=== PATIENT | female | born 1980 | race American Indian/Alaskan Native ===

== ENCOUNTER 2019-03-15 14:32 | Outpatient (CLI) | payer BC ==
--- NOTE | 2019-03-16 08:50 | Mammography Report ---
BILATERAL DIGITAL SCREENING MAMMOGRAM WITH CAD INDICATION: Routine screening mammography. TECHNIQUE: Digital bilateral 2D mammography was obtained in the craniocaudal and mediolateral obliq ue projections. This examination was interpreted with the benefit of Computer-Aided Detection analysi s. COMPARISON: None. FINDINGS: Breast Density: There are scattered areas of fibroglandular density. There is no evidence of dominant mass, suspicious calcifications or architectural distortion in eith er breast. IMPRESSION:No mammographic evidence of malignancy. BI-RADS Category 1: Negative. No mammographic evidence of malignancy. Recommend routine screening m ammography in one year. A "normal" or negative report should not discourage follow up or biopsy of a clinically significant f inding. A written summary of these findings will be mailed to the patient. The patient will be entered into a mammography reporting system which will generate a reminder letter for the patient's next appointmen t at the appropriate interval. The [employer] recommends yearly mammograms starting at age 40 and continuing as l melissa as a woman is in good health. Breast MRI is recommended for women with an approximate 20-25% or greater lifetime risk of breast cancer, including women with a strong family history of breast or ova segun cancer or who have been treated for Hodgkin's disease. Signer Name: Jose Pardo MD Signed: 03/16/2019 8:45 AM Workstation Name: [id number]
== END 2019-03-15 14:33 | disposition home or self-care (01) ==
LOC: SPVWC 14:32
PROVIDERS: ATTEND Obstetrics & Gynecology
DX: Z12.31 Encounter for screening mammogram for malignant neoplasm of breast (principal)
CPT/HCPCS: 77067

== ENCOUNTER 2019-08-20 05:57 | Day surgery (SDC) | payer BC ==
--- NOTE | 2019-08-16 10:20 | Anesthesia Consultation ---
Anesthesia Consult and Med Hx Date of service: 08/20/19 - Airway Anesthetic Teeth Evaluation: Good ROM Head & Neck: Adequate Mental/Hyoid Distance: Adequate Mallampati Class: Class III Intubation Access Assessment: Possibly Difficult - Pulmonary Exam CTA: Yes - Cardiac Exam Cardiac Exam: RRR - Pre-Operative Health Status ASA Pre-Surgery Classification: ASA3 Proposed Anesthetic Plan: General - Pulmonary Hx Smoking: No Hx Respiratory Symptoms: No Hx Sleep Apnea: Yes (stopped using CPAP many years ago) - Cardiovascular System Hx Hypertension: No Hx Heart Attack/AMI: No - Central Nervous System CVA: No Hx Psychiatric Problems: No - Gastrointestinal Hx Gastroesophageal Reflux Disease: Yes - Endocrine Hx Renal Disease: No Hx Liver Disease: No Hx Insulin Dependent Diabetes: No Hx Non-Insulin Dependent Diabetes: No Hx Thyroid Disease: No - Other Systems Hx Obesity: Yes (BMI 42) - Additional Comments Anesthesia Medical History Comments: No hx anesthetic complications. Reports episode of mild chest pain 2 months ago which occurred at rest, no associated symptoms, resolved on its own. Has stairs in house and is able to climb those without chest pain or dyspnea. Preop EKG NSR.
[2019-08-16 10:28] LABS: Hematocrit 37.7 % (30.3-42.9); Hemoglobin 12.6 gm/dl (10.1-14.3); Mean Corpuscular HGB Conc 33 % (30-34); Mean Corpuscular Volume 78 fl (79-97); Platelet Count 303 K/mm3 (140-440); Red Blood Count 4.83 M/mm3 (3.65-5.03); Red Cell Distribution Width 15.1 % (13.2-15.2)
[2019-08-20] MEDS ORDERED: GABAPENTIN 300 MG CAP PO NR (06:00)
[2019-08-20] MEDS ORDERED: CELECOXIB 200 MG CAP PO NR (06:00)
[2019-08-20] MEDS ORDERED: MIDAZOLAM 2 MG/2 ML INJ IV NR (06:00)
[2019-08-20] MEDS ORDERED: LACTATED RINGERS 1,000 ML IV SCH (06:00)
[2019-08-20] MEDS ORDERED: BACTERIOSTATIC SODIUM CHLORIDE 0.9% 30 ML VIAL INFILTRATI ONE (06:32)
--- NOTE | 2019-08-20 07:19 | Anesthesia Day of Surgery ---
Anesthesia Day of Surgery - Day of Surgery Patient Examined: Yes Patient H&P Reviewed: Yes Patient is NPO: Yes
[2019-08-20] MEDS ORDERED: fentaNYL 100 MCG/2 ML INJ ONE (07:36)
[2019-08-20] MEDS ORDERED: PROPOFOL 200 MG/20 ML VIAL IV ONE (07:36)
[2019-08-20] MEDS ORDERED: LIDOCAINE MPF (2%) 20 MG/1 ML VIAL 5 ML ONE (07:37)
--- NOTE | 2019-08-20 08:10 | Short Stay Summary ---
Short Stay Documentation Date of service: 08/20/19 Narrative H&P: Menorrhagia and endometrial mass - History Past Medical History: No medical history Past Surgical History: Other (btl) Social history: no significant social history - Allergies and Medications Current Medications: Allergies Penicillins Allergy (Verified 08/12/19 17:24) Facial peeling Home Medications Medication Instructions Recorded Confirmed Last Taken Type No Known Home Medications [No 08/12/19 08/12/19 Unknown History Reported Home Medications] Active Medications Celecoxib (Celebrex) 200 mg PO PREOP NR Stop: 08/20/19 23:59 Last Admin: 08/20/19 06:40 Dose: 200 mg Documented by: Gabapentin (Gabapentin) 300 mg PO PREOP NR Stop: 08/20/19 23:59 Last Admin: 08/20/19 06:40 Dose: 300 mg Documented by: Lactated Ringer's (Lactated Ringers) 1,000 mls @ 100 mls/hr IV DIRECT HORACE Last Admin: 08/20/19 06:50 Dose: 100 mls/hr Documented by: - Physical exam General appearance: no acute distress, well-nourished Lungs: Clear to auscultation, Normal air movement Breasts: deferred Heart: Regular rate Gastrointestinal: normal Female Genitourinary: deferred - Brief post op/procedure progress note Date of procedure: 08/20/19 Pre-op diagnosis: Menorrhagia, endometrial mass Post-op diagnosis: same Procedure: Operative hysteroscopy, Excision of endometrial mass, D&C; endometrial ablation Anesthesia: GETA Surgeon: HECTOR LEWIS Estimated blood loss: minimal Pathology: list (endometrial tissue, endometrial mass) Specimen disposition: to lab Condition: stable - Hospital course Hospital course: Normal - Disposition Condition at discharge: Good Disposition: DC-01 TO HOME OR SELFCARE - Discharge Diagnoses (1) Endometrial mass Status: Resolved (2) Menorrhagia Status: Chronic Qualifiers: Menorrahagia type: with regular cycle Qualified Code(s): N92.0 - Excessive and frequent menstruation with regular cycle Short Stay Discharge Plan Activity: other (no sex) Weight Bearing Status: Full Weight Bearing Diet: regular Special Instructions: no heavy lifting (greater than 25lbs) Follow up with: PRIMARY CARE, [Primary Care Provider] - 7 Days HECTOR LEWIS MD [Staff Physician] - (As scheduled)
[2019-08-20] MEDS ORDERED: KETOROLAC 30 MG/1 ML INJ ONE (08:32)
[2019-08-20] MEDS ORDERED: ONDANSETRON 4 MG/2 ML INJ ONE (08:32)
[2019-08-20] MEDS ORDERED: dexAMETHasone 20 MG/5 ML VIAL ONE (08:32)
[2019-08-20] MEDS ORDERED: SODIUM CHLORIDE 0.9% IRRIG SOLN 3000 ML IR ONE (08:48)
[2019-08-20] MEDS ORDERED: PHENYLEPHRINE/NS 1,000 MCG/10 ML SYRINGE (OR USE) IV ONE (08:50)
[2019-08-20] MEDS ORDERED: LACTATED RINGERS 1,000 ML ONE (09:12)
[2019-08-20] MEDS ORDERED: oxyCODONE /ACETAMINOPHEN 5-325MG TAB PO PRN (10:00)
[2019-08-20 10:24] VITALS: BP 144/88
--- NOTE | 2019-08-20 16:59 | Post Anesthesia Evaluation ---
- Post Anesthesia Evaluation Patient Participated: Yes Airway Patent: Yes Stable Respiratory Function: Yes Nausea/Vomiting: No Temp > 96.8F: Yes Pain Manageable: Yes Adequeate Hydration: Yes Anesthesia Complications: No
--- NOTE | 2019-08-24 12:14 | Operative Report ---
Operative Report Operative Report: Date: 08/20/2019 Preoperative diagnosis: 1. Menorrhagia 2. Endometrial mass Postoperative diagnosis: 1. Menorrhagia 2. Endometrial mass Procedure: 1. Cervical dilation 2. Operative hysteroscopy 3. Uterine curettage 4. Resection of endometrial mass using MyoSure device 5. Individual ablation Surgeon: Miranda Newell MD Construction Operations Manager: [] Anesthesiologist: [] Anesthesia: Gen. endotracheal anesthesia EBL: Minimum Findings: Uterine cavity length: 5 cm Uterine cavity width: 4.4 cm Ablation wattage: 120 W Duration: 88 seconds Distention medium: Saline Fluid deficit: 100 mL Procedure: After risks, benefits, complications, consequences and alternatives for this procedure were explained, and patient voiced her understanding and her desire to proceed, she is taken to the OR and placed in the supine position. General anesthesia was induced. She was placed in the dorsolithotomy position. Exam under anesthesia was unremarkable. She was then prepped and draped in usual sterile fashion. Timeout was performed. A Carlos catheter was introduced into the bladder a operative speculum was introduced was introduced into the vagina. The anterior lip of the cervix was grasped with single-tooth tenaculum and the uterus was sounded to 10 cm. The cervix was progressively dilated to allow the operative hysteroscope. Anterior endometrial mass was noted otherwise the cavity appeared to be grossly normal. Using the Myosure device hysteroscopic resection of endometrial mass was performed. Uterine curettage was then performed. Then the uterine cavity length was determined. The NovaSure device was then set to 5 cm. The array was deployed to ensure adequate release. The device was introduced into the uterus and the array was released.. Uterine cavity width was determined to be 4.4 cm. Uterine integrity was confirmed. Ablation was performed. The procedure was completed at 88 seconds. The device was removed. The hysteroscope was reintroduced. Uniform Ablation of all surfaces was noted. The procedure was ended. The speculum and the tenaculum were removed. Hemostasis was noted. The Carlos catheter was removed. No bleeding from the tenaculum site was noted. Clear yellow urine was draining into the Carlos catheter at the end of the procedure. Patient tolerated procedure well and taken to recovery room in stable condition
== END 2019-08-20 05:58 | disposition home or self-care (01) ==
LOC: OR 05:57
PROVIDERS: ATTEND Obstetrics & Gynecology
DX: N92.0 Excessive and frequent menstruation with regular cycle (principal); N84.0 Polyp of corpus uteri; N94.89 Other specified conditions associated with female genital organs and menstrual cycle; G43.909 Migraine, unspecified, not intractable, without status migrainosus; G47.30 Sleep apnea, unspecified; K21.9 Gastro-esophageal reflux disease without esophagitis; E66.9 Obesity, unspecified; Z68.42 Body mass index [BMI] 45.0-49.9, adult; Z79.899 Other long term (current) drug therapy; Z88.0 Allergy status to penicillin; Z98.51 Tubal ligation status; Z98.890 Other specified postprocedural states
CPT/HCPCS: 36415; 58563; 81025; 85027; 88305; 93005; 93010; A4217; J1100; J1885; J2250; J2370; J2405; J2704; J3010; J7120

== ENCOUNTER 2021-01-17 15:54 | Outpatient (CLI) | payer OTHER ==
--- NOTE | 2021-01-17 17:35 | Mammography Report ---
DIGITAL SCREENING MAMMOGRAM WITH CAD, 01/17/2021 CLINICAL INFORMATION / INDICATION: Routine screening mammography. SCREENING MAMMO TECHNIQUE: Digital bilateral 2D mammography was obtained in the craniocaudal and mediolateral obliqu e projections. This examination was interpreted with the benefit of Computer-Aided Detection analysis . COMPARISON: 03/15/19. FINDINGS: Breast Density: The breasts are almost entirely fatty. No dominant mass, suspicious calcifications, or architectural distortion in either breast. IMPRESSION: No mammographic evidence of malignancy. Follow up recommendation: Routine yearly BI-RADS Category 1: Negative. A "normal" or negative report should not discourage follow up or biopsy of a clinically significant f inding. A written summary of these findings will be mailed to the patient. The patient will be entered into a mammography reporting system which will generate a reminder letter for the patient's next appointmen t at the appropriate interval. The [employer] recommends yearly mammograms starting at age 40 and continuing as l melissa as a woman is in good health. Breast MRI is recommended for women with an approximate 20-25% or greater lifetime risk of breast cancer, including women with a strong family history of breast or ova segun cancer or who have been treated for Hodgkin's disease. Signer Name: Jean Edwards MD Signed: 01/17/2021 5:30 PM Workstation Name: [id number]
== END 2021-01-17 15:55 | disposition home or self-care (01) ==
LOC: SPVWC 15:54
PROVIDERS: ATTEND Obstetrics & Gynecology
DX: Z12.31 Encounter for screening mammogram for malignant neoplasm of breast (principal); N64.89 Other specified disorders of breast
CPT/HCPCS: 77067

== ENCOUNTER 2022-05-21 08:47 | Outpatient (CLI) | payer BC ==
--- NOTE | 2022-05-22 08:06 | Mammography Report ---
DIGITAL SCREENING MAMMOGRAM WITH CAD, 05/21/2022 CLINICAL INFORMATION / INDICATION: Routine screening mammography. SCREENING MAMMO TECHNIQUE: Digital bilateral 2D mammography was obtained in the craniocaudal and mediolateral obliqu e projections. This examination was interpreted with the benefit of Computer-Aided Detection analysis . COMPARISON: 01/17/2021 FINDINGS: Breast Density: There are scattered areas of fibroglandular density. No dominant mass, suspicious calcifications, or architectural distortion in either breast. IMPRESSION: No mammographic evidence of malignancy. Follow up recommendation: Routine yearly screening mammogram. BI-RADS Category 1: NEGATIVE A "normal" or negative report should not discourage follow up or biopsy of a clinically significant f inding. A written summary of these findings will be mailed to the patient. The patient will be entered into a mammography reporting system which will generate a reminder letter for the patient's next appointmen t at the appropriate interval. The [employer] recommends yearly mammograms starting at age 40 and continuing as l melissa as a woman is in good health. Breast MRI is recommended for women with an approximate 20-25% or greater lifetime risk of breast cancer, including women with a strong family history of breast or ova segun cancer or who have been treated for Hodgkin's disease. Signer Name: Benny Mills MD Signed: 05/22/2022 8:01 AM Workstation Name: [id number]
== END 2022-05-21 08:48 | disposition home or self-care (01) ==
LOC: SPVWC 08:47
PROVIDERS: ATTEND Obstetrics & Gynecology
DX: Z12.31 Encounter for screening mammogram for malignant neoplasm of breast (principal)
CPT/HCPCS: 77067